=== PATIENT | female | born 1975 | race Caucasian/White ===

== ENCOUNTER 2017-04-24 08:01 | Emergency (ER) | payer OTHER ==
[~2017-04-24] VITALS: Ht 162.6 cm; Wt 83.9 kg
--- NOTE | ~2017-04-24 | EKG ---
PATIENT: MAINE GRACE UNIT #: [id number] Ventricular Rate: 58 BPM Atrial Rate: 58 BPM P-R Interval: 140 ms QRS Duration: 74 ms Q-T Interval: 430 ms QTC Calculation(Bezet): 422 ms P [place]: 43 degrees Calculated R [place]: -6 degrees Calculated T [place]: 30 degrees Diagnosis Line: Sinus bradycardia Diagnosis Line: Otherwise normal ECG Diagnosis Line: No previous ECGs available Diagnosis Line: Confirmed by JOYA ACHARYA MD ([id number]) on 04/24/2017 Diagnosis Line: 7:25:08 PM INTERPRETING MD: PATRIZIA AGOSTO
--- NOTE | ~2017-04-24 | US67 ---
[facility] A Service of [facility] & [facility] RADIOLOGY TEXT RESULTS PATIENT: MAINE GRACE LOCATION: [facility] : 73 UNIT #: [id number] AGE: [address]: Fracisco Chua MD SEX: F ORDER DR: [id number] [facility] [address] [place], [place] [address] [id number] MR#: [id number] Acc #: [id number] NAME: MAINE GRACE : 1975 SEX: F STUDY DATE/TIME: 04/24/2017 12:08 UNIT: SUZIE ROOM: STUDY DESCRIPTION: Gallbladder Attending Physician: Fracisco Chua M.D. Ordering Physician: Fracisco Chua M.D. Primary Care Physician: Jm Gillespie M.D. MEDICAL IMAGING REPORT This report is preliminary unless electronic signature is present EXAM Gallbladder ultrasound 04/24/2017 HISTORY Nausea, vomiting and right upper quadrant abdominal pain off And on for 2 weeks. FINDINGS The liver is homogeneous in echotexture and demonstrates no cystic or solid mass lesions. The intra and extrahepatic bile ducts are not dilated. The gallbladder contains multiple gallstones but there is no evidence of gallbladder wall thickening or pericholecystic fluid. The common duct measures 4 mm. The pancreas and right kidney are normal. IMPRESSION Cholelithiasis. No evidence of gallbladder wall thickening or pericholecystic fluid. No intra or extrahepatic biliary ductal dilatation. Dictated by... Isiah Grijalva M.D. THIS IS AN ELECTRONICALLY VERIFIED REPORT Isiah Grijalva M.D. at 04/25/2017 7:18 AM KRT/to TD: 04/24/2017 17:51 JOB #: [id number] MEDICAL IMAGING REPORT Page 1 of 1 COPY
[2017-04-24 09:09] LABS: BASOPHIL# 0.1 X10e3 (0-0.3); BASOPHIL% 0.5 % (0-2.5); EOSINOPHIL# 0.1 X10e3 (0-0.7); EOSINOPHIL% 0.6 % (0.0-7.0); HEMATOCRIT 44.3 % (35.0-45.0); HEMOGLOBIN 14.5 gm/dL (12.0-16.0); MEAN CELL VOLUME 84.5 FL (83-96); MEAN CORPUSCULAR HEMOGLOBIN 27.7 PG (28-34); MEAN CORPUSCULAR HGB CONC 32.8 g/dL (30-36); MEAN PLATELET VOLUME 8.1 FL (6.5-11.5); MONOCYTE# 0.8 X10e3 (0-1.0); MONOCYTE% 4.8 % (3.0-12.0); NEUTROPHIL# 11.8 X10e3 (1.5-7.1); NEUTROPHIL% 75.1 % (40-75); PLATELET COUNT 420 X10e3 (140-420); RED BLOOD COUNT 5.24 X10e (3.90-5.30); RED CELL DISTRIBUTION WIDTH 13.1 % (11.0-15.5); WHITE BLOOD COUNT 15.7 X10e3 (4.0-10.5)
[2017-04-24 09:10] LABS: DIFF IND YES
[2017-04-24 09:33] LABS: URINE SOURCE CLEAN CATCH
[2017-04-24 09:39] LABS: ALBUMIN SERUM 4.1 g/dL (3.5-5.0); BILIRUBIN, DIRECT 0.4 mg/dL (0.0-0.2); BILIRUBIN,INDIRECT 0.6 mg/dL (0.0-0.9); BUN/CREATININE RATIO 16.25; CALCIUM SERUM 8.8 mg/dL (8.4-10.2); CREATININE SERUM 0.8 mg/dL (0.6-1.4); GLOM FILT RATE Estimated 90.4 mL/min (>60); POTASSIUM 3.6 mmol/L (3.5-5.1); PROTEIN TOTAL SERUM 7.3 g/dL (6.0-8.3)
[2017-04-24 09:39] LABS: URINE APPEARANCE CLOUDY; URINE BILIRUBIN NEG (NEG); URINE BLOOD NEG (NEG); URINE COLOR YELLOW; URINE GLUCOSE NEG (NEG); URINE KETONE NEG (NEG); URINE LEUKOCYTE ESTERASE TRACE (NEG); URINE NITRATE NEG (NEG); URINE PH 8.5 (5-8); URINE PROTEIN 1+ (NEG)
[2017-04-24 09:41] LABS: URINE BACTERIA AUWI NEG (NEGATIVE); URINE SQUAMOUS EPITHELIAL CELL FEW /[HPF]
[2017-04-24 09:42] LABS: PLATELET ESTIMATE NORMAL (NORMAL)
[2017-04-24 10:00] LABS: CULTURE INDICATED? NO
[2017-04-24 10:02] LABS: URINE MUCUS PRESENT
[2017-04-29] MEDS ORDERED: VOLTAREN50 MG PO (14:23)
[2017-04-29] MEDS ORDERED: ZOLOFT50 MG PO (14:25)
[2017-04-29] MEDS ORDERED: VOLTAREN75 MG PO (14:25)
== END 2017-04-24 12:48 | disposition home or self-care (01) ==
LOC: CED 08:01
PROVIDERS: Emergency Medicine
DX: K80.50 Calculus of bile duct without cholangitis or cholecystitis without obstruction (principal)
CPT/HCPCS: 36415; 76705; 80048; 80076; 81003; 82150; 83690; 84703; 85025; 93005; 99285

== ENCOUNTER → 2017-05-02 | Day surgery (SDC) | payer SELFPAY ==
[~2017-05-02] MED LIST: VOLTAREN50 MG PO; VOLTAREN75 MG PO; ZOLOFT50 MG PO
--- NOTE | ~2017-05-02 | OR ---
Unit #: [id number] #: [id number] Patient: MAINE GRACE [id number] [address] [place], [place] [address] [id number] O MR#: [id number] NAME: MAINE GRACE ROOM: Date of Procedure: 05/02/2017 Admission Date: 05/02/2017 Surgeon: Sonido Edmondson III, M.D. : 1975 Attending Physician: Sonido Edmondson III, M.D. Primary Care Physician: Jm Gillespie M.D. OPERATIVE REPORT PREOPERATIVE DIAGNOSIS Chronic cholecystitis. POSTOPERATIVE DIAGNOSIS Chronic cholecystitis. PROCEDURE PERFORMED Laparoscopic cholecystectomy. 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 SPECIMENS Gallbladder to Pathology. COMPLICATIONS None apparent. ESTIMATED BLOOD LOSS Minimal. ANESTHESIA General endotracheal tube anesthesia. INDICATIONS FOR PROCEDURE This is a 42-year-old lady, who has history of gallstones and typical biliary colic. She is here today for laparoscopic cholecystectomy. DESCRIPTION OF PROCEDURE After consent was obtained, the patient was brought to the operating room and placed in the supine position. General anesthetic was administered and her abdomen was prepped and draped in standard surgical fashion. I made a 5-mm incision in the right upper quadrant. I used an Optiview to enter into the peritoneal cavity without any difficulty. CO2 pneumoperitoneum was then established. Next, a second 5-mm port was placed in the supraumbilical region and an 11-mm port was placed in the midepigastric region and a third 5-mm port was placed in the right lateral subcostal region. I began by retracting the gallbladder superiorly and laterally. There were few adhesions to the gallbladder which were carefully taken down. I then dissected out the cystic duct and cystic artery, and after these were carefully identified, I placed two clips Unit #: [id number] #: [id number] Patient: MAINE GRACE proximally and one clip distally along both structures and then they were divided. The gallbladder was then taken off the liver bed using the hook cautery. The gallbladder was then extracted through the epigastric port site without dilatation of the fascia. Hemostasis was excellent. All needle, sponge, and instrument counts were correct x2. I removed all the trocars and released the pneumoperitoneum. All the incisions were injected with 0.25% plain Marcaine. I reapproximated the skin edges with interrupted 4-0 Vicryl subcuticular suture. Steri-Strips were then applied. The patient tolerated the procedure without any problems and returned to the recovery room in stable condition. Dictated by... Sonido Edmondson III, M.D. VCL/ralph TD: 05/03/2017 13:27 JOB #: [id number] OPERATIVE REPORT Page 1 of 1 X Sonido Edmondson III, MD X PROCEDURE OPERATIVE NOTE
== END | disposition home or self-care (01) ==
LOC: CSUR 07:14
DX: K80.10 Calculus of gallbladder with chronic cholecystitis without obstruction (principal); K21.9 Gastro-esophageal reflux disease without esophagitis; M19.90 Unspecified osteoarthritis, unspecified site; Z79.899 Other long term (current) drug therapy
CPT/HCPCS: 84703; 88304; J0131; J0330; J1100; J1885; J2250; J2405; J2710; J3010